=== PATIENT | male | born 1955 | race Two or more races ===

== ENCOUNTER 2018-04-19 14:19 | Emergency (ER) | payer OTHER ==
[2018-04-19 14:30] VITALS: BP 179/97
--- NOTE | 2018-04-19 14:48 | EDPHY ---
H & P Stated Complaint: pain behind r ankle/twisted on bus Source: Patient Exam Limitations: No limitations - Personal History Current Tetanus Diphtheria and Acellular Pertussis (TDAP): Yes - Medical/Surgical History Hx Asthma: No Hx Chronic Respiratory Disease: No Hx Diabetes: No Hx Cardiac Disease: No Hx Renal Disease: No Hx Cirrhosis: No Hx Alcoholism: No Hx HIV/AIDS: No Hx Splenectomy or Spleen Trauma: No Other PMH: htn - Social History Smoking Status: Never smoked Time Seen by Provider: 04/19/18 14:48 HPI/ROS: HPI: This is a 63-year-old male who presents with Chief Complaint: pain behind r ankle/twisted on bus Location: Posterior right ankle Quality: Injury Duration: Prior to arrival Signs and Symptoms: No bleeding, no radiation, no numbness, no weakness, no tingling, no incontinence, + decreased range of motion, no swelling, no pain, no fever Timing: Acute Severity: 12/05 Context: Patient reports that he has a history of right Achilles tendon rupture and repair in 1990 presents with sudden onset of posterior right ankle pain accompanied by decreased range of motion. He reports that he got out of the bus and went down to unload luggage. He he felt a popping sensation in his right posterior ankle and then decreased range of motion. Denies paresthesias, skin color changes, radiation. Patient is employed as a business agent. Modifying Factors: None Comment: ROS: A comprehensive 10 system review of systems is otherwise negative aside from elements mentioned in the history of present illness. MEDICAL/SURGICAL/SOCIAL HISTORY: Medical history: Hypertension Surgical history: Denies Social history: Never smoked Employed as a business agent CONSTITUTIONAL: Polite and cooperative elderly white male, awake and alert, no obvious distress HEENT: Atraumatic and normocephalic. NECK: supple EXTREMITIES: 2/2 pulses, strength 5/5, right Ankle: Plantar flexion to 50, dorsiflexion to 20. Foot inversion to 35 degree. No tenderness/swelling Anterior talofibular ligament. No tenderness/swelling Calcaneofibular ligament , no tenderness/swelling posterior talofibular ligament, no tenderness/swelling posterior inferior tibiofibular ligament. Positive [place] test. Good light touch sensation. no deformities, no clubbing, no cyanosis or edema. NEUROLOGICAL: no focal neuro deficits. GCS 15. Light touch sensation intact. SKIN: Warm and dry, no erythema. no rash. Good capillary refill. (Sujatha Carbone) Constitutional: Initial Vital Signs Temperature (C) 36.3 C 04/19/18 14:27 Heart Rate 50 L 04/19/18 14:27 Respiratory Rate 16 04/19/18 14:27 Blood Pressure 179/97 H 04/19/18 14:27 O2 Sat (%) 96 04/19/18 14:27 O2 Delivery Mode Room Air Allergies/Adverse Reactions: No Known Allergies Allergy (Unverified 04/19/18 14:25) Home Medications: Medication Instructions Recorded Chlorthalidone 04/19/18 Lisinopril 04/19/18 SIMVASTATIN 04/19/18 oxyCODONE/APAP 5/325 [Percocet 1 - 2 tab PO Q4H PRN #10 tab 04/19/18 5/325 (*)] Medical Decision Making Procedures: Procedure: Splint placement. A right posterior Ortho Glass splint and crutches were applied by the Emergency Room general technician. After application of the splint I returned and re-examined the patient. The splint was adequately immobilizing the joint and distal to the splint the patient's circulation and sensation was intact. (Sujatha Carbone) ED Course/Re-evaluation: Patient has positive Richmond test with history of prior Achilles tendon repair Placed in posterior Ortho Glass splint, crutches, nonweightbearing status and orthopedic follow-up in 3-5 days Patient patient understands that he will most likely require surgery. No signs of neurovascular compromise/tenting of skin/compartment syndrome/ extremities and joints examined above and below area of concern and are neurovascularly intact. This patient was seen under the supervision of my secondary supervising physician. I evaluated care for this patient independently. Discussed this patient with Dr. Montes De Oca. (Sujatha Carbone) The patient was evaluated and managed by the physician education administrative assistant. I have reviewed this chart and I agree with the findings and plan of care as documented , as indicated by my signature. I am the secondary supervising physician. ( Lucila Montes De Oca) Differential Diagnosis: Ankle injury differential diagnosis includes but is not limited to tibia fracture, fibula fracture, metatarsal fracture, LisFranc fracture, achilles tendon rupture, sprain. (Sujatha Carbone) Departure - Departure Disposition: Home, Routine, Self-Care Clinical Impression: Rupture of right Achilles tendon Condition: Good Instructions: Oxycodone/Acetaminophen (By mouth), Achilles Tendon Rupture (ED) , Achilles Tendon Repair (DC) Additional Instructions: Keep the splint dry and in place until seen by Orthopedics. Take Tylenol 650 mg every 4 hours and/or Ibuprofen 600 mg every 8 hours with food as needed for pain. Use Percocet every 6 hours as needed for severe/break through pain. Do not use Tylenol and Percocet concomitantly. Apply ice for 30 minutes at a time; 2-3 times per day for the next 1-2 days. Follow up with Orthopedics in 3-5 days at which time they will evaluate and recommend with you if conservative management versus surgery is indicated. Referrals: Hernán Zamora MD [Medical Doctor] - As per Instructions Prescriptions: oxyCODONE/APAP 5/325 [Percocet 5/325 (*)] 1 - 2 tab PO Q4H PRN #10 tab PRN Reason: Pain, Severe
== END 2018-04-19 15:07 | disposition home or self-care (01) ==
DX: S86.011A Strain of right Achilles tendon, initial encounter (principal); I10 Essential (primary) hypertension; X50.9XXA Other and unspecified overexertion or strenuous movements or postures, initial encounter; Y92.9 Unspecified place or not applicable